=== PATIENT | female | born 1995 | race Caucasian/White ===

== ENCOUNTER 2022-05-13 14:06 | Emergency (ER) | payer MEDICAID ==
[~2022-05-13] VITALS: Ht 165.1 cm; Wt 65.0 kg
[2022-05-13] MEDS ORDERED: IBUPROFEN 600MG TABLET PO ONE (15:30)
[2022-05-13] MEDS ORDERED: BACITRACIN ZINC OINT UDPKT TOP ONE (15:30)
[2022-05-13] MEDS ORDERED: IBUP-2029 MT (17:48)
[2022-05-13] MEDS ORDERED: BO1 TP (17:48)
[2022-05-13 18:01] VITALS: BP 120/60
== END 2022-05-13 18:03 | disposition home or self-care (01) ==
LOC: ER 14:52
DX: S50.311A Abrasion of right elbow, initial encounter (principal); M54.59 Other low back pain; W20.8XXA Other cause of strike by thrown, projected or falling object, initial encounter; Y93.89 Activity, other specified; Y92.038 Other place in apartment as the place of occurrence of the external cause
CPT/HCPCS: 72100; 73080; 81025; 99284